=== PATIENT | female | born 1985 | race Caucasian/White ===

== ENCOUNTER 2017-05-27 16:00 | Emergency (ER) | payer BC ==
[~2017-05-27] VITALS: Ht 162.6 cm; Wt 79.5 kg
[2017-05-27] MEDS ORDERED: MOTRIN600 MG PO (18:29)
[2017-05-27 18:48] VITALS: BP 120/77
== END 2017-05-27 18:53 | disposition home or self-care (01) ==
LOC: EME 16:00
DX: S92.512A Displaced fracture of proximal phalanx of left lesser toe(s), initial encounter for closed fracture (principal); W22.8XXA Striking against or struck by other objects, initial encounter; F41.9 Anxiety disorder, unspecified; Z88.0 Allergy status to penicillin
CPT/HCPCS: 73630; 80053; 81003; 83690; 84484; 85027; 99281; 99284